=== PATIENT | female | born 1970 ===

== ENCOUNTER 2021-07-09 11:32 | Emergency (ER) | payer BC ==
[2021-07-09] MEDS ORDERED: Sodium Chloride 0.9% 1,000 ML IV ONE (11:59)
[2021-07-09] MEDS ORDERED: Losartan 50 MG Tab PO ONE (12:13)
--- NOTE | 2021-07-09 12:16 | EDM.PDOC ---
ED HPI GENERAL MEDICAL PROBLEM - General Chief Complaint: General Stated Complaint: HIGH BP SOB AND HIGH BLOOD SUGAR Time Seen by Provider: 07/09/21 11:35 Source of Information: Reports: Patient History Limitations: Reports: No Limitations - History of Present Illness INITIAL COMMENTS - FREE TEXT/NARRATIVE: HISTORY AND PHYSICAL: History of present illness: Patient is a 51-year-old female who presents to the emergency room with concerns of shortness of breath. Patient has a past medical history of type 2 diabetes and hypertension. As of 2018 she stopped taking her Lisinopril and Metformin due to undesirable side effects. She states the Lisinopril caused her to have a frequent nonproductive cough and Metformin gave her nauseated feeling even when taken with food. She has not seen a medical provider since stopping these medications herself (2-3 years). She states she has gradually felt unwell and over the past few weeks has had some generalized fatigue, pain in her bilateral "kidney area", occasional dizziness and today shortness of breath. She does occasionally check her blood sugars which have been running in the 200's. She has been trying to manage her type 2 diabetes with physical activity and diet and had been dong good until today, she states it was 300 [facility]. She had gone to the [facility] today due to the shortness of breath and was encouraged to come to the emergency room as they "could not handle me over there". She was able to get in to a primary care provider to establish care this Friday. Patient denies any fever, chills, headache, change in vision, syncope or near syncope. Denies any chest pain, back pain, shortness of breath or cough. Denies any abdominal pain, nausea, vomiting, diarrhea, constipation or dysuria. Has not noted any blood in urine or stool. Patient has been eating and drinking appropriately. Review of systems: As per history of present illness and below otherwise all systems reviewed and negative. Past medical history: As per history of present illness and as reviewed below otherwise noncontributory. Surgical history: As per history of present illness and as reviewed below otherwise noncontributory. Social history: See social history for further information Family history: As per history of present illness and as reviewed below otherwise noncontributory. Physical exam: General: Well developed and well nourished. Alert and orientated x 3. Nontoxic in appearance and in no acute distress. Vital signs are stable and have been reviewed by me. Nursing notes were reviewed. HEENT: Atraumatic, normocephalic, pupils equal and reactive bilaterally, negative for conjunctival pallor or scleral icterus, mucous membranes moist, TMs normal bilaterally, throat clear, neck supple, nontender, trachea midline. No drooling or trismus noted. No meningeal signs. No hot potato voice noted. Lungs: Clear to auscultation bilaterally. No wheezes, rales, or rhonchi. Chest nontender. Normal work of breathing, no accessory muscles used. Heart: S1S2, regular rate and rhythm without overt murmur, gallops, or rubs. No JVD. No peripheral edema Abdomen: Soft, nondistended, nontender. Normoactive bowel sounds. Negative for masses or costovertebral tenderness. Pelvis: Stable nontender. Genitourinary/Rectal: Deferred. Skin: Intact, warm, dry. No lesions or rashes noted. Hematologic: No petechiae or purpra. Mucosa appropriate color and normal nail bed color and refill. Extremities: Atraumatic, moves all extremities per self without difficulty or deficits, negative for cords or calf pain. Neurovascular unremarkable. Neuro: Awake, alert, oriented. Cranial nerves II through XII unremarkable. Cerebellum unremarkable. Motor and sensory unremarkable throughout. Exam nonfocal. Psychiatric: Mood and affect are appropriate. Normal thought process. Answering questions appropriately. Notes: *This patient was seen and evaluated during the 2019 SARS-CoV-2 novel coronavirus pandemic period. Community viral transmission is ongoing at time of this encounter and the emergency department is operating under pandemic response procedures. Patient is a 51-year-old female who presents to the emergency room with complaints of shortness of breath. She states she has bilateral flank pain, a chest tightness around her lower ribs and generally feels unwell. She admits that she stopped taking her lisinopril and Metformin in 2018 due to undesirable side effects and has not seen a primary care provider since. She was able to get an appointment on Friday to establish care with someone locally. Attempted to get into the walk-in clinic but due to her symptoms, elevated blood sugar and unmanaged they wanted her seen in the emergency room. We discussed medication options due to her not tolerating lisinopril. If her lab work is safe for her to take an ARB, will start that here today. We will do basic lab work, cardiac work-up, EKG and test for COVID-19. Patient is aware and ag reeable. Patient CBC and CMP are unremarkable with the exception of hyperglycemia. Hemoglobin A1c is 10.0%, no previous to compare to. BUN and creatinine at baseline are acceptable for starting losartan. We will start her at 50 mg once daily. Patient's urine is unremarkable, shows no ketones or protein. Negative D-dimer. Negative COVID-19. Chest x-ray is unremarkable. Patient's blood pressure has improved. She states she does feel better at this time. I have talked with the patient about today's findings, in addition to providing specific details for plan of care. Reassessment at the time of disposition demonstrates that the patient is in no acute distress. The patient is stable for discharge, counseling was provided and we discussed in great detail signs and symptoms that would prompt them to return to the Emergency Department. Medication, follow up and supportive care measures were reviewed and discussed. Voices understanding and is agreeable to plan of care. Denies any further questions or concerns at this time. Diagnostics: CBC, CMP, troponin, EKG, chest x-ray, COVID-19, hemoglobin A1c Therapeutics: IV fluid, losartan Prescription: Losartan, Metformin Impression: Unmanaged hypertension Uncontrolled type 2 diabetes Medication noncompliance Plan: 1. You were evaluated today on an emergent basis. Your lab work that was done today shows that your blood sugar is unmanaged. Your Hemaglobn A1C is 10% which is an average blood sugar of 240 daily over the past 3 months. I am going to restart you on Metformin, please take 1 tab with your largest meal of the day. Your primary care provider may adjust this or discussed different treatment options with you. Your blood pressure did come down nicely. I have started you on and ARB (angiotensin II receptor desiree) which hopefully you will tolerate better than the JODI (Lisinopril). Please take this medication once daily. Continue to monitor your symptoms. Medication may need to be adjusted as well. 2. You can alternate Tylenol and ibuprofen as needed for pain and fever management. 3. We encourage you to follow up with your primary care provider and/or recommended specialist in the next few days for re-evaluation and further care/management. 4. If your symptoms should worsen, new symptoms develop or any of the signs and symptoms we discussed should arise please return to the emergency room or call 911 (if needed). Definitive disposition and diagnosis as appropriate pending reevaluation and review of above. 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: Musculoskeletal History: Reports: None Neurological History: Reports: None Psychiatric History: Reports: None Endocrine/Metabolic History: Reports: None Hematologic History: Reports: None Immunologic History: Reports: None Oncologic (Cancer) History: Reports: None Dermatologic History: Reports: None - Infectious Disease History Infectious Disease History: Reports: None - Past Surgical History Head Surgeries/Procedures: Reports: None Social & Family History - Family History Family Medical History: No Pertinent Family History - Tobacco Use Tobacco Use Status *Q: Never Tobacco User Second Hand Smoke Exposure: No - Caffeine Use Caffeine Use: Reports: None - Recreational Drug Use Recreational Drug Use: No ED ROS GENERAL - Review of Systems Review Of Systems: Comprehensive ROS is negative, except as noted in HPI. ED EXAM, GENERAL - Physical Exam Exam: See Below (See dictation) Course - Vital Signs Last Recorded V/S: Last Vital Signs Temp 98.2 F 07/09/21 12:11 Pulse 70 07/09/21 12:53 Resp 18 07/09/21 12:53 BP 146/86 H 07/09/21 13:03 Pulse Ox 97 07/09/21 12:53 - Orders/Labs/Meds Orders: Active Orders 24 hr Category Date Time Status EKG Documentation Completion [RC] STAT Care 07/09/21 11:59 Active CULTURE URINE [MREF] Stat Lab 07/09/21 12:13 Received TSH ULTRASENSITIVE [CHEM] Stat Lab 07/09/21 13:25 Ordered Labs: Laboratory Tests 07/09/21 07/09/21 07/09/21 Range/Units 11:49 11:57 11:57 WBC 7.22 (4.0-11.0) K/uL RBC 4.57 (4.30-5.90) M/uL Hgb 13.3 (12.0-16.0) g/dL Hct 38.7 (36.0-46.0) % MCV 84.7 (80.0-98.0) fL MCH 29.1 (27.0-32.0) pg MCHC 34.4 (31.0-37.0) g/dL RDW Std Deviation 39.9 (28.0-62.0) fl RDW Coeff of Jovanni 13 (11.0-15.0) % Plt Count 226 (150-400) K/uL MPV 11.80 (7.40-12.00) fL Neut % (Auto) 59.7 (48.0-80.0) % Lymph % (Auto) 32.5 (16.0-40.0) % [place] % (Auto) 6.0 (0.0-15.0) % Eos % (Auto) 1.5 (0.0-7.0) % Baso % (Auto) 0.3 (0.0-1.5) % Neut # (Auto) 4.3 (1.4-5.7) K/uL Lymph # (Auto) 2.4 (0.6-2.4) K/uL [place] # (Auto) 0.4 (0.0-0.8) K/uL Eos # (Auto) 0.1 (0.0-0.7) K/uL Baso # (Auto) 0.0 (0.0-0.1) K/uL Nucleated RBC % 0.0 /100WBC Nucleated RBCs # 0 K/uL D-Dimer, Quantitative (0.0-0.50) mg/L FEU Sodium 136 (136-145) mmol/L Potassium 4.0 (3.5-5.1) mmol/L Chloride 100 (98-107) mmol/L Carbon Dioxide 26.2 (21.0-32.0) mmol/L BUN 7 (7.0-18.0) mg/dL Creatinine 0.6 (0.6-1.0) mg/dL Est Cr Clr Drug Dosing 109.08 mL/min Estimated GFR (MDRD) > 60.0 ml/min Glucose 215 H (74-106) mg/dL POC Glucose 210 H (70-99) mg/dL Hemoglobin A1c (4.5 - 6.2) % Calcium 8.9 (8.5-10.1) mg/dL Total Bilirubin 0.2 (0.2-1.0) mg/dL AST 11 L (15-37) IU/L ALT 22 (14-63) IU/L Alkaline Phosphatase 100 (46-116) U/L Troponin I < 0.050 (0.000-0.056) ng/mL Total Protein 7.9 (6.4-8.2) g/dL Albumin 3.7 (3.4-5.0) g/dL Globulin 4.2 H (2.6-4.0) g/dL Albumin/Globulin Ratio 0.9 (0.9-1.6) Urine Color Urine Appearance Urine pH (5.0-8.0) Ur Specific [place]obb[place] (1.001-1.035) Urine Protein (NEGATIVE) mg/dL Urine Glucose (UA) (NEGATIVE) mg/dL Urine Ketones (NEGATIVE) mg/dL Urine Occult Blood (NEGATIVE) Urine Nitrite (NEGATIVE) Urine Bilirubin (NEGATIVE) Urine Urobilinogen (<2.0) EU/dL Ur Leukocyte Esterase (NEGATIVE) Urine RBC (0-2/HPF) Urine WBC (0-5/HPF) Ur Epithelial Cells (NONE-FEW) Urine Bacteria (NEGATIVE) Influenza Type A RNA Influenza Type B RNA SARS-CoV-2 RNA (ANGELICA) (NEGATIVE) 07/09/21 07/09/21 07/09/21 Range/Units 11:57 11:57 11:59 WBC (4.0-11.0) K/uL RBC (4.30-5.90) M/uL Hgb (12.0-16.0) g/dL Hct (36.0-46.0) % MCV (80.0-98.0) fL MCH (27.0-32.0) pg MCHC (31.0-37.0) g/dL RDW Std Deviation (28.0-62.0) fl RDW Coeff of Jovanni (11.0-15.0) % Plt Count (150-400) K/uL MPV (7.40-12.00) fL Neut % (Auto) (48.0-80.0) % Lymph % (Auto) (16.0-40.0) % [place] % (Auto) (0.0-15.0) % Eos % (Auto) (0.0-7.0) % Baso % (Auto) (0.0-1.5) % Neut # (Auto) (1.4-5.7) K/uL Lymph # (Auto) (0.6-2.4) K/uL [place] # (Auto) (0.0-0.8) K/uL Eos # (Auto) (0.0-0.7) K/uL Baso # (Auto) (0.0-0.1) K/uL Nucleated RBC % /100WBC Nucleated RBCs # K/uL D-Dimer, Quantitative 0.31 (0.0-0.50) mg/L FEU Sodium (136-145) mmol/L Potassium (3.5-5.1) mmol/L Chloride (98-107) mmol/L Carbon Dioxide (21.0-32.0) mmol/L BUN (7.0-18.0) mg/dL Creatinine (0.6-1.0) mg/dL Est Cr Clr Drug Dosing mL/min Estimated GFR (MDRD) ml/min Glucose (74-106) mg/dL POC Glucose (70-99) mg/dL Hemoglobin A1c 10.0 H (4.5 - 6.2) % Calcium (8.5-10.1) mg/dL Total Bilirubin (0.2-1.0) mg/dL AST (15-37) IU/L ALT (14-63) IU/L Alkaline Phosphatase (46-116) U/L Troponin I (0.000-0.056) ng/mL Total Protein (6.4-8.2) g/dL Albumin (3.4-5.0) g/dL Globulin (2.6-4.0) g/dL Albumin/Globulin Ratio (0.9-1.6) Urine Color Urine Appearance Urine pH (5.0-8.0) Ur Specific [place]obb[place] (1.001-1.035) Urine Protein (NEGATIVE) mg/dL Urine Glucose (UA) (NEGATIVE) mg/dL Urine Ketones (NEGATIVE) mg/dL Urine Occult Blood (NEGATIVE) Urine Nitrite (NEGATIVE) Urine Bilirubin (NEGATIVE) Urine Urobilinogen (<2.0) EU/dL Ur Leukocyte Esterase (NEGATIVE) Urine RBC (0-2/HPF) Urine WBC (0-5/HPF) Ur Epithelial Cells (NONE-FEW) Urine Bacteria (NEGATIVE) Influenza Type A RNA Cancelled Influenza Type B RNA Cancelled SARS-CoV-2 RNA (ANGELICA) NEGATIVE (NEGATIVE) 07/09/21 Range/Units 12:13 WBC (4.0-11.0) K/uL RBC (4.30-5.90) M/uL Hgb (12.0-16.0) g/dL Hct (36.0-46.0) % MCV (80.0-98.0) fL MCH (27.0-32.0) pg MCHC (31.0-37.0) g/dL RDW Std Deviation (28.0-62.0) fl RDW Coeff of Jovanni (11.0-15.0) % Plt Count (150-400) K/uL MPV (7.40-12.00) fL Neut % (Auto) (48.0-80.0) % Lymph % (Auto) (16.0-40.0) % [place] % (Auto) (0.0-15.0) % Eos % (Auto) (0.0-7.0) % Baso % (Auto) (0.0-1.5) % Neut # (Auto) (1.4-5.7) K/uL Lymph # (Auto) (0.6-2.4) K/uL [place] # (Auto) (0.0-0.8) K/uL Eos # (Auto) (0.0-0.7) K/uL Baso # (Auto) (0.0-0.1) K/uL Nucleated RBC % /100WBC Nucleated RBCs # K/uL D-Dimer, Quantitative (0.0-0.50) mg/L FEU Sodium (136-145) mmol/L Potassium (3.5-5.1) mmol/L Chloride (98-107) mmol/L Carbon Dioxide (21.0-32.0) mmol/L BUN (7.0-18.0) mg/dL Creatinine (0.6-1.0) mg/dL Est Cr Clr Drug Dosing mL/min Estimated GFR (MDRD) ml/min Glucose (74-106) mg/dL POC Glucose (70-99) mg/dL Hemoglobin A1c (4.5 - 6.2) % Calcium (8.5-10.1) mg/dL Total Bilirubin (0.2-1.0) mg/dL AST (15-37) IU/L ALT (14-63) IU/L Alkaline Phosphatase (46-116) U/L Troponin I (0.000-0.056) ng/mL Total Protein (6.4-8.2) g/dL Albumin (3.4-5.0) g/dL Globulin (2.6-4.0) g/dL Albumin/Globulin Ratio (0.9-1.6) Urine Color YELLOW Urine Appearance CLEAR Urine pH 7.0 (5.0-8.0) Ur Specific Dobbins 1.010 (1.001-1.035) Urine Protein NEGATIVE (NEGATIVE) mg/dL Urine Glucose (UA) NEGATIVE (NEGATIVE) mg/dL Urine Ketones NEGATIVE (NEGATIVE) mg/dL Urine Occult Blood NEGATIVE (NEGATIVE) Urine Nitrite NEGATIVE (NEGATIVE) Urine Bilirubin NEGATIVE (NEGATIVE) Urine Urobilinogen 0.2 (<2.0) EU/dL Ur Leukocyte Esterase SMALL H (NEGATIVE) Urine RBC 0-1 (0-2/HPF) Urine WBC 0-2 (0-5/HPF) Ur Epithelial Cells FEW (NONE-FEW) Urine Bacteria RARE (NEGATIVE) Influenza Type A RNA Influenza Type B RNA SARS-CoV-2 RNA (ANGELICA) (NEGATIVE) Meds: Medications Discontinued Medications Generic Name Dose Route Start Last Admin Trade Name Freq PRN Reason Stop Dose Admin Sodium Chloride 1,000 mls @ 999 mls/hr 07/09/21 11:59 07/09/21 12:05 Normal Saline IV 07/09/21 12:59 999 mls/hr STAT ONE Administration Losartan Potassium 50 mg 07/09/21 12:13 07/09/21 13:03 Losartan 50 Mg Tab PO 07/09/21 12:14 50 mg ONETIME ONE Administration Departure - Departure Time of Disposition: 13:28 Disposition: Home, Self-Care 01 Clinical Impression: Uncontrolled hypertension, Uncontrolled type 2 diabetes mellitus - Discharge Information Prescriptions: Losartan [Cozaar] 50 mg PO DAILY 30 Days #30 tab metFORMIN HCl [Metformin HCl] 500 mg PO DAILY #30 tablet Instructions: Managing Your Hypertension, Hyperglycemia, [id number] Referrals: PCP,None [Primary Care Provider] - Forms: ED Department Discharge Additional Instructions: The following information is given to patients seen in the emergency department who are being discharged to home. This information is to outline your options for follow-up care. We provide all patients seen in our emergency department with a follow-up referral. The need for follow-up, as well as the timing and circumstances, are variable depending upon the specifics of your emergency department visit. If you don't have a primary care physician on staff, we will provide you with a referral. We always advise you to contact your personal physician following an emergency department visit to inform them of the circumstance of the visit and for follow-up with them and/or the need for any referrals to a consulting specialist. The emergency department will also refer you to a specialist when appropriate. This referral assures that you have the opportunity for follow-up care with a specialist. All of these measure are taken in an effort to provide you with optimal care, which includes your follow-up. Under all circumstances we always encourage you to contact your private physician who remains a resource for coordinating your care. When calling for follow-up care, please make the office aware that this follow-up is from your recent emergency room visit. If for any reason you are refused follow-up, please contact the [facility] Emergency Department at and asked to speak to the emergency department charge nurse. [facility] [address] [place] [address] [id number] [address] [address] Thank you for choosing the [facility] emergency department in [place] for your medical needs today. It was a pleasure caring for you. Today you were seen in the emergency department for hypertension and elevated blood sugar. 1. You were evaluated today on an emergent basis. Your lab work that was done today shows that your blood sugar is unmanaged. Your Hemaglobn A1C is 10% which is an average blood sugar of 240 daily over the past 3 months. I am going to restart you on Metformin, please take 1 tab with your largest meal of the day. Your primary care provider may adjust this or discussed different treatment options with you. Your blood pressure did come down nicely. I have started you on and ARB (angiotensin II receptor desiree) which hopefully you will tolerate better than the JODI (Lisinopril). Please take this medication once daily. Continue to monitor your symptoms. Medication may need to be adjusted as well. 2. You can alternate Tylenol and ibuprofen as needed for pain and fever management. 3. We encourage you to follow up with your primary care provider and/or recommended specialist in the next few days for re-evaluation and further care/management. 4. If your symptoms should worsen, new symptoms develop or any of the signs and symptoms we discussed should arise please return to the emergency room or call 911 (if needed). Sepsis Event Note (ED) - Evaluation Sepsis Screening Result: No Definite Risk - Focused Exam Vital Signs: Vital Signs Temp Pulse Resp BP BP Pulse Ox 07/09/21 13:03 146/86 H 07/09/21 12:53 70 18 146/86 H 97 07/09/21 12:11 98.2 F 74 18 154/88 H 97 07/09/21 11:45 98.2 F 76 18 187/119 H 97 - My Orders Last 24 Hours: My Active Orders 07/09/21 11:59 EKG Documentation Completion [RC] STAT 07/09/21 12:13 CULTURE URINE [MREF] Stat 07/09/21 13:25 TSH ULTRASENSITIVE [CHEM] Stat - Assessment/Plan Last 24 Hours: My Active Orders 07/09/21 11:59 EKG Documentation Completion [RC] STAT 07/09/21 12:13 CULTURE URINE [MREF] Stat 07/09/21 13:25 TSH ULTRASENSITIVE [CHEM] Stat
--- NOTE | 2021-07-09 12:26 | PCM.SN.2 ---
- Free Text/Narrative Note: EKG done 07/09/2021 at 12:07 PM sinus rhythm heart rate 70 SC 141 QT duration 448 [place] XX 1 possible left atrial enlargement QRS normal ST and T normal except late transition to R wave. No prior for comparison. Impression no obvious acute injury or ischemia.
[2021-07-09 12:27] LABS: BLOOD UREA NITROGEN,BUN 7 mg/dL (7.0-18.0); CARBON DIOXIDE,CO2 26.2 mmol/L (21.0-32.0); CHLORIDE,CL 100 mmol/L (98-107); GLUCOSE RANDOM 215 mg/dL (74-106); SODIUM,NA 136 mmol/L (136-145)
--- NOTE | 2021-07-09 13:25 | CR ---
INDICATION: Shortness of breath TECHNIQUE: Portable upright AP view of the chest COMPARISON: None FINDINGS: The lungs are clear. There is no sizable pleural effusion or pneumothorax. The cardiomediastinal silhouette is normal. The visualized osseous structures are unremarkable. IMPRESSION: Unremarkable radiographic appearance of the chest. Dictated by Lynn Loving MD @ 07/09/2021 1:23:[address] Lynn Loving @ Jul 09 2021 1:23PM
== END 2021-07-09 13:44 | disposition home or self-care (01) ==
LOC: MW.ED 11:32
DX: I10 Essential (primary) hypertension (principal); E11.9 Type 2 diabetes mellitus without complications; Z20.822 Contact with and (suspected) exposure to COVID-19; Z79.899 Other long term (current) drug therapy; Z91.19 Patient's noncompliance with other medical treatment and regimen
CPT/HCPCS: 36415; 71045; 80053; 81001; 82947; 83036; 84443; 84484; 85025; 85379; 87086; 87088; 87186; 87635; 93005; 99284; A9270; J7030; U0002